=== PATIENT | female | born 1935 | race Two or more races ===

== ENCOUNTER 2019-01-03 18:21 | Inpatient (IN) | payer OTHER, MEDICAID ==
[~2019-01-03] VITALS: Ht 160 cm; Wt 78.4 kg
[~2019-01-03 18:21] MED LIST: CARV6.2551 PO; ENAL20TA PO; FURO40TA4 PO; GABA800T97 PO; LOVA40TA72 PO; METF-372 PO; PANTOPRAZOLE SOD DR 40 MG TAB PO
[2019-01-03] MEDS ORDERED: SODIUM CHLORIDE 0.9% 1,000 ML IVB ONE (19:00)
[2019-01-03 19:36] LABS: Basophils # (auto) 0 uL; Basophils % (auto) 0.7 % (0.0-2.0); Eosinophils # (auto) 0.2 uL; Hematocrit 39.9 % (36.0-46.0); Hemoglobin 13.1 g/dL (12.2-16.2); Lymphocytes # (auto) 0.9 uL; Lymphocytes % (auto) 22.1 % (10.0-50.0); Mean Corpuscular Hemoglobin 28.4 pg (28.0-32.0); Mean Corpuscular Hgb Conc. 32.8 g/dL (32.0-36.0); Mean Corpuscular Volume 86.7 fL (80.0-100.0); Monocytes # (auto) 0.4 uL; Monocytes % (auto) 10.2 % (0.0-12.0); Neutrophils # (auto) 2.6 uL; Platelet Count (auto) 213 10^3/uL (140-450); Red Blood Cells 4.61 10^6/uL (4.0-5.20); Red Cell Distribution Width 16.6 % (11.8-14.3); White Blood Cell 4.1 10^3/uL (4.4-10.8)
[2019-01-03 19:47] LABS: Albumin 3.6 g/dL (3.4-5.0); Calcium 8.5 mg/dL (8.5-10.1); Potassium 3.8 mmol/L (3.5-5.1)
[2019-01-03 19:54] LABS: BUN/Creatinine Ratio 14.3; Total Protein 7.1 g/dL (6.4-8.2)
[2019-01-03 19:59] LABS: INR 1.01 (0.9-1.15); Partial Thromboplastin Time 27.3 sec (23.64-32.05)
[2019-01-03 20:02] LABS: Bilirubin, Total 0.4 mg/dL (0.2-1.0)
[2019-01-03] MEDS ORDERED: FUROSEMIDE 40 MG/4 ML VIAL IV ONE (22:30)
[2019-01-03] MEDS ORDERED: DEXTROSE (50%) 50ML SYRG IV PRN (22:45)
[2019-01-03] MEDS ORDERED: LORazepam 2MG/ML-1ML VIAL IV PRN (22:45)
[2019-01-03 23:29] LABS: Urine Bacteria NONE SEEN /hpf (None Seen); Urine Blood TRACE /uL (Negative); Urine Specific Gravity 1.016 (1.001-1.035); Urine WBC 3 /hpf (0 - 5)
[2019-01-03 23:30] VITALS: BP 144/65
--- NOTE | 2019-01-03 23:30 | NUR ---
Telemetry admit from ER ABNER CASILLAS admitted to Telemetry unit after SBAR received. Patient oriented to Grace Loyd, primary RN, unit, room, bed, and unit policies regarding patient care and visiting hours. Patient now on continuous telemetry monitoring, tele box #3 and telemetry reading on arrival to unit is SR 73 . Patient placed on bedside oxygen, weighed by bed scale and encouraged to call if they need something. All questions and concerns addressed, patient verbalized understanding. PATIENT IS [place] SPEAKING ONLY. POOR HISTORIAN. PATIENT STATES THAT HER SISTER WILL BE HERE IN THE AM TO HELP ANSWER QUESTIONS.
--- NOTE | 2019-01-03 23:35 | NUR ---
PATIENT PLACED ON FALL PRECAUTION
[2019-01-04] VITALS (7 sets, daily range): BP systolic 106–152; BP diastolic 54–73
--- NOTE | 2019-01-04 00:15 | NUR ---
INFLUENZA SWAB SENT TO LAB
--- NOTE | 2019-01-04 00:15 | NUR ---
MRSA NAIRS SWAB SENT TO LAB
--- NOTE | 2019-01-04 00:25 | NUR ---
PHOTOS TAKEN TO RIGHT ABDOMEN; APPEARS TO BE SURGICAL INCISION.
--- NOTE | 2019-01-04 00:35 | NUR ---
MED REC UNABLE TO OBTAIN LIST OF HOME MEDICATIONS; PATIENT IS POOR HISTORIAN. PATIENT STATES THAT HER SISTER WILL BE HERE IN THE MORNING TO HELP ANSWER QUESTIONS. PATIENT DOES NOT REMEMBER HER SISTER'S PHONE NUMBER.
--- NOTE | 2019-01-04 04:30 | NUR ---
WOUND CARE REDRESSED DRESSING AT RIGHT ABDOMEN. MINIMAL SEROUS DRAINAGE, NO ODOR NOTED. NEW DRESSING STERILE GAUZE SECURED WITH DRESSING RETENTION TAPE.
[2019-01-04] MEDS: InsuLIN REG 1unit/0.01ml Soln (100units/ml) SC SCH ×4 (06:14→22:00)
[2019-01-04] MEDS: GABAPENTIN 400 MG CAP PO SCH ×3 (06:14→22:34)
[2019-01-04] MEDS: ACCU-CHEK COMFORT CURVE STRIP VI SCH ×4 (06:15→22:34)
[2019-01-04 06:27] LABS: Basophils # (auto) 0 uL; Basophils % (auto) 0.6 % (0.0-2.0); Calcium 8.5 mg/dL (8.5-10.1); Eosinophils # (auto) 0.2 uL; Eosinophils % (auto) 3.5 % (0.0-7.0); Hematocrit 39.3 % (36.0-46.0); Hemoglobin 12.9 g/dL (12.2-16.2); Lymphocytes # (auto) 0.8 uL; Lymphocytes % (auto) 15.5 % (10.0-50.0); Mean Corpuscular Hemoglobin 28.3 pg (28.0-32.0); Mean Corpuscular Hgb Conc. 32.8 g/dL (32.0-36.0); Mean Corpuscular Volume 86.4 fL (80.0-100.0); Monocytes # (auto) 0.6 uL; Monocytes % (auto) 11.6 % (0.0-12.0); Neutrophils # (auto) 3.4 uL; Neutrophils % (auto) 68.8 % (37.0-80.0); Nucleated Red Blood Cells % 0.1 %; Platelet Count (auto) 191 10^3/uL (140-450); Red Blood Cells 4.55 10^6/uL (4.0-5.20); Red Cell Distribution Width 16.4 % (11.8-14.3); White Blood Cell 4.9 10^3/uL (4.4-10.8)
[2019-01-04 06:30] LABS: BUN/Creatinine Ratio 15.7
--- NOTE | 2019-01-04 07:30 | NUR ---
Opening Shift Note Assumed care of patient. No S/S of distress/SOB or pain. Instructed patient on POC and to call for assist PRN, fall precautions in place per protocol. Will continue to monitor for changes Q1hr and PRN.
--- NOTE | 2019-01-04 07:52 | NUR ---
CLOSING NOTE- NOC SHIFT PATIENT IS ALERT AND ORIENTED X4. NO S/SX OF DISTRESS, SOB OR PAIN. ENDORSED CARE TO DAY SHIFT NURSE BENI REES.
[2019-01-04] MEDS ORDERED: CARVEDILOL 3.125 MG TAB PO SCH (10:00)
[2019-01-04] MEDS: CITALOPRAM HYDROBR 20 MG TAB PO SCH (10:24)
[2019-01-04] MEDS: FUROSEMIDE 40 MG/4 ML VIAL IV SCH (10:24)
[2019-01-04] MEDS: PANTOPRAZOLE 40 MG TAB PO SCH (10:26)
[2019-01-04] MEDS: ASPirin-EC 81 mg tab PO SCH (10:26)
[2019-01-04] MEDS: LOSARTAN POTASSIUM 50 MG TAB PO SCH (10:26)
--- NOTE | 2019-01-04 13:15 | NUR ---
POM Pt. instructed to have family member bring Azilect medication from home. Pt states family will bring medication later.
[2019-01-04] MEDS ORDERED: CARV12.544 PO (16:44)
[2019-01-04] MEDS ORDERED: LOSA-39 PO (16:44)
[2019-01-04] MEDS ORDERED: CITA-77 PO (16:44)
[2019-01-04] MEDS ORDERED: ALOG1TAB2 PO (16:44)
[2019-01-04] MEDS ORDERED: GLIP5TAB12 PO (16:44)
[2019-01-04] MEDS ORDERED: RASA0.5T PO (16:44)
[2019-01-04] MEDS ORDERED: FURO20TA3 PO (16:44)
[2019-01-04] MEDS ORDERED: ASPI81CH43 PO (16:44)
--- NOTE | 2019-01-04 16:44 | NUR ---
Med rec reviewed and updated according to list provided by family of current home meds
--- NOTE | 2019-01-04 16:50 | NUR ---
Cardio at bedside MD Vega at bedside. Aware of patient's status. Per MD efren lasix as ordered. Cont care
--- NOTE | 2019-01-04 19:10 | NUR ---
OPENING NOTE - NOC SHIFT PATIENT IS SITTING UP IN BED WATCHING TELEVISION. PATIENT IS ALERT AND ORIENTED. PATIENT STATES THAT SHE FELT BETTER THROUGH OUT THE DAY. BEDSIDE TABLE WITHIN REACH AND CALL LIGHT WITHIN REACH. DISCUSSED POC WITH PATIENT AND INSTRUCTED PATIENT TO CALL PRN; PATIENT VERBALIZED UNDERSTANDING. PATIENT IS COMORAN SPEAKING ONLY. PATIENT STATES THAT HER SISTER WAS IN TO VISIT HER DURING THE DAY AND THAT SHE WILL RETURN TOMORROW MORNING. WILL ENDORSE TO DAY SHIFT NURSE TO OBTAIN NOK INFORMATION. NO S/SX OF DISTRESS, SOB OR PAIN. WILL CONTINUE TO MONITOR Q1H AND PRN; PATIENT VERBALIZED UNDERSTANDING.
[2019-01-04] MEDS: CARVEDILOL 12.5 MG TAB PO SCH (22:00)
[2019-01-05 05:07] VITALS: BP 139/66
[2019-01-05] MEDS: GABAPENTIN 400 MG CAP PO SCH ×3 (06:31→21:38)
[2019-01-05] MEDS: ACCU-CHEK COMFORT CURVE STRIP VI SCH ×4 (06:31→21:39)
[2019-01-05] MEDS: InsuLIN REG 1unit/0.01ml Soln (100units/ml) SC SCH ×4 (06:31→21:39)
[2019-01-05 07:15] LABS: BUN/Creatinine Ratio 20.9; Calcium 8.2 mg/dL (8.5-10.1); Potassium 4.1 mmol/L (3.5-5.1)
--- NOTE | 2019-01-05 07:30 | NUR ---
Opening Shift Note Assumed care of patient, awake and alert. No S/S of distress/SOB or pain. Instructed on POC and to call for assist PRN, will continue to monitor for changes Q1hr and PRN. Fall precautions in place per protocol.
--- NOTE | 2019-01-05 07:44 | NUR ---
ENDORSED PATIENT CARE TO DAY SHIFT NURSE CABRERA BAZAN. NO S/SX OF DISTRESS, SOB OR PAIN.
[2019-01-05 08:00] VITALS: BP 140/74
[2019-01-05] MEDS: CITALOPRAM HYDROBR 20 MG TAB PO SCH (09:45)
[2019-01-05] MEDS: FUROSEMIDE 40 MG/4 ML VIAL IV SCH (09:45)
[2019-01-05] MEDS: CARVEDILOL 12.5 MG TAB PO SCH ×2 (09:46→21:29)
[2019-01-05] MEDS: RASAGILINE 0.5 MG PO SCH (09:48)
[2019-01-05] MEDS: LOSARTAN POTASSIUM 50 MG TAB PO SCH (09:48)
[2019-01-05] MEDS: ASPirin-EC 81 mg tab PO SCH (09:49)
[2019-01-05] MEDS: PANTOPRAZOLE 40 MG TAB PO SCH (09:49)
[2019-01-05] MEDS ORDERED: POLYETHYLENE GLYCOL 17 GM PWDR PO ONE (11:00)
--- NOTE | 2019-01-05 11:30 | NUR ---
Tele Patient downgraded from telemetry to Med Surg. Tele box sent back to tele room. Mary Notified.
[2019-01-05 12:00] VITALS: BP 114/55
--- NOTE | 2019-01-05 14:45 | NUR ---
Larson catheter dc'd Order to discontinue larson catheter. Larson dc'd with clean technique following deflation of balloon. Patient tolerated well with no complaints of pain. Continue care.
[2019-01-05 16:57] VITALS: BP 141/60
--- NOTE | 2019-01-05 19:05 | NUR ---
OPENING NOTE- NOC SHIFT PATIENT IS ALERT AND ORIENTED X4. PATIENT IS [place]OL[place] SPEAKING ONLY. DISCUSSED POC WITH PATIENT AND INSTRUCTED PATIENT TO CALL PRN; PATIENT VERBALIZES UNDERSTANDING. PATIENT REPORTS THAT SHE IS ABLE TO WALK TO TOILET AND URINATE WITHOUT DIFFICULTY. WILL CONTINUE TO MONITOR. PATIENT IS PLACED ON FALL PRECAUTIONS. WILL CONTINUE TO MONITOR Q1H AND PRN.
--- NOTE | 2019-01-05 20:00 | NUR ---
PATIENT UP TO TOILET USING WALKER. PATIENT IS ABLE TO WALK TO BATHROOM WITH USE OF HER PERSONAL WALKER. NO DISTRESS OR SOB NOTED.
[2019-01-05 20:05] VITALS: BP 109/57
[2019-01-05 22:00] VITALS: BP 109/57
[2019-01-06 05:00] VITALS: BP 134/70
[2019-01-06] MEDS: GABAPENTIN 400 MG CAP PO SCH ×2 (05:56→14:12)
[2019-01-06] MEDS: InsuLIN REG 1unit/0.01ml Soln (100units/ml) SC SCH ×3 (05:56→17:00)
[2019-01-06] MEDS: ACCU-CHEK COMFORT CURVE STRIP VI SCH ×3 (05:57→17:25)
[2019-01-06 07:09] LABS: Calcium 8.6 mg/dL (8.5-10.1); Potassium 5.3 mmol/L (3.5-5.1)
[2019-01-06 07:11] LABS: BUN/Creatinine Ratio 32.5
[2019-01-06 08:51] VITALS: BP 107/67
[2019-01-06] MEDS: RASAGILINE 0.5 MG PO SCH (10:00)
[2019-01-06] MEDS: ASPirin-EC 81 mg tab PO SCH (10:24)
[2019-01-06] MEDS: CARVEDILOL 12.5 MG TAB PO SCH (10:25)
[2019-01-06] MEDS: PANTOPRAZOLE 40 MG TAB PO SCH (10:25)
[2019-01-06] MEDS: CITALOPRAM HYDROBR 20 MG TAB PO SCH (10:26)
[2019-01-06] MEDS: LOSARTAN POTASSIUM 50 MG TAB PO SCH (10:26)
--- NOTE | 2019-01-06 11:43 | NUR ---
Hospitalist at bedside MD Ross at bedside, aware of patient's status including abnormal labs, ABG's. New orders received for social service consult to arrange oxygen for home, new order to redraw potassium and if potassium level is normal patient can be dc home today. Patient verbalized understanding. Cont care
--- NOTE | 2019-01-06 12:31 | NUR ---
Okay to dc home spoke to MD Ross and made aware of new potassium level 4.8, per MD dc home today after oxygen has been arranged. [facility] and she states she will be in today. Cont care
[2019-01-06 12:37] VITALS: BP 107/67
[2019-01-06 13:00] VITALS: BP 120/46
--- NOTE | 2019-01-06 15:59 | NUR ---
assessment Patient is a 83 year old female who is alert and oriented. Patients cognitive abilities are intact. Prior to admission patient lived home with her sister and functioned with assistance. Per patient she will return home to her prior living arrangements post discharge and family will transport her home. Patient informed me she has a fww for home use. Patient qualifies for home 02 her ABG p02 was 50.2. Rosalie REY ALEXI shweta is working on home 02 for patient. I informed patient she has a right to speak to a social media project manager regarding all care. I informed patient she has a right to participate in any and all discharge planning. Patient does not have a POA and advanced directive. I have offered patient information on POA and advanced directives. I informed the patient the advantages and benefits of having an Advanced Directive. Patient verbalized understanding and agreed to discharge plan. Addendum: 01/06/19 at 1606 by Daniela RIOS Amended: Links added.
--- NOTE | 2019-01-06 16:45 | NUR ---
Discharge planning per consult, patient has orders for 02. Referral sent to [facility] [phone], obtained auth from [facility]-[id number]. Placed a follow up call to [facility], spoke with Angeles, pierre auth and he advised that they will deliver the 02 to bedside between 6:30-8pm. I provided daughter Jo's phone number [phone] to reference delivery of 02 concentrator home delivery. Nurse Velazco was advised of dc plan. Addendum: 01/06/19 at 1650 by SAMM SABILLON SS Amended: Links added.
[2019-01-06 17:00] VITALS: BP 111/53
--- NOTE | 2019-01-06 17:38 | NUR ---
Decreased BS Blood sugar is 59, reassessed is 60. Patient denies symptoms of hypoglycemia at this time. OJ and crackers provided. No distress noted or sob. Patient's daughter Jo at bedside, states she will be leaving soon but her "aunt" will be coming back to be present for oxygen delivery. Awaiting oxygen delivery for dc as ordered. Cont to monitor
--- NOTE | 2019-01-06 18:06 | NUR ---
Reassessed BS Blood sugar reassessed is 94 after orange juice provided and crackers. Patient denies any symptoms of hypoglycemia. No distress or sob noted. Cont to monitor
--- NOTE | 2019-01-06 18:44 | NUR ---
Patient's sister at bedside awaiting oxygen delivery at this time for dc.
--- NOTE | 2019-01-06 19:15 | NUR ---
Patient care endorsed endorsed care to Oneida chou. Patient sitting up in bed in no acute distress or sob noted. Patient currently on 2L n/c and instructed to maintain continuous oxygen at 2l n/c at home as well. Patient and pt's sister at bedside verbalized understanding. Patient's sister at bedside awaiting oxygen to be delivered for dc. Call light within reach.
--- NOTE | 2019-01-06 21:00 | NUR ---
[facility] AT BEDSIDE TO DELIVER PORTAL OXYGEN
--- NOTE | 2019-01-06 21:22 | NUR ---
Discharge instructions given as ordered. Encourage to follow up with PMD as instructed. All questions and concerns addressed. Patient verbalized understanding. Medication reconciliation form completed and copy given to patient. IV removed with catheter intact, pressure dressing applied. Patient taken to vehicle via wheelchair with all personal belongings and portable oxygen tank at 2L via NC, accompanied by staff and family member. No distress noted at time of departure.
[2019-01-06 21:39] VITALS: BP 135/59
== END 2019-01-06 21:22 | disposition home or self-care (01) | DRG 291 ==
LOC: ER 18:21 → TELE 18:22 → EAST 23:29 → TELE-EAST 23:43 → EAST 01-05 10:59
PROVIDERS: ADMIT Nurse Practitioner Family; ATTEND Internal Medicine
DX: I13.0 Hypertensive heart and chronic kidney disease with heart failure and stage 1 through stage 4 chronic kidney disease, or unspecified chronic kidney disease (principal); J18.9 Pneumonia, unspecified organism; I50.43 Acute on chronic combined systolic (congestive) and diastolic (congestive) heart failure; J96.00 Acute respiratory failure, unspecified whether with hypoxia or hypercapnia; E87.1 Hypo-osmolality and hyponatremia; J44.0 Chronic obstructive pulmonary disease with (acute) lower respiratory infection; J91.8 Pleural effusion in other conditions classified elsewhere; F32.9 Major depressive disorder, single episode, unspecified; G20 Parkinson's disease; I25.10 Atherosclerotic heart disease of native coronary artery without angina pectoris; E78.5 Hyperlipidemia, unspecified; F41.9 Anxiety disorder, unspecified; I48.91 Unspecified atrial fibrillation; I27.20 Pulmonary hypertension, unspecified; F02.80 Dementia in other diseases classified elsewhere, unspecified severity, without behavioral disturbance, psychotic disturbance, mood disturbance, and anxiety; E66.9 Obesity, unspecified; N18.3 Chronic kidney disease, stage 3 (moderate); E11.22 Type 2 diabetes mellitus with diabetic chronic kidney disease; K57.90 Diverticulosis of intestine, part unspecified, without perforation or abscess without bleeding; K21.9 Gastro-esophageal reflux disease without esophagitis; Z96.659 Presence of unspecified artificial knee joint; Z95.0 Presence of cardiac pacemaker; Z83.3 Family history of diabetes mellitus; Z82.49 Family history of ischemic heart disease and other diseases of the circulatory system; Z79.84 Long term (current) use of oral hypoglycemic drugs; Z82.0 Family history of epilepsy and other diseases of the nervous system; Z68.30 Body mass index [BMI] 30.0-30.9, adult; Z79.899 Other long term (current) drug therapy; Z88.8 Allergy status to other drugs, medicaments and biological substances
CPT/HCPCS: 36415; 36600; 71045; 74176; 80048; 80053; 81001; 82805; 82962; 83036; 83605; 83880; 84132; 84443; 84484; 85025; 85379; 85610; 85730; 87040; 87081; 87804; 93005; 93306; 94761; 97116; 97530; G0378; J1815

== ENCOUNTER 2020-07-06 13:22 | Inpatient (IN) | payer OTHER, MEDICAID ==
[~2020-07-06] VITALS: Ht 157.5 cm; Wt 73.5 kg
[~2020-07-06 13:22] MED LIST changes: +ALOG1TAB2 PO; +ASPI81CH43 PO; +CARV12.544 PO; -CARV6.2551 PO; +CITA-77 PO; -ENAL20TA PO; +FURO20TA3 PO; -FURO40TA4 PO; +GLIP5TAB12 PO; +LOSA-39 PO; -METF-372 PO; +RASA0.5T PO
[2020-07-06 13:44] LABS: Basophils # (auto) 0 10 ^3/uL (0-0.2); Basophils % (auto) 0.8 % (0.0-2.0); Eosinophils # (auto) 0.1 10 ^3/uL (0-0.8); Hematocrit 34.6 % (36.0-46.0); Hemoglobin 11.1 g/dL (12.2-16.2); Lymphocytes # (auto) 0.7 10 ^3/uL (0.4-5.4); Lymphocytes % (auto) 16.1 % (10.0-50.0); Mean Corpuscular Hemoglobin 27.9 pg (28.0-32.0); Mean Corpuscular Hgb Conc. 32.1 g/dL (32.0-36.0); Monocytes # (auto) 0.2 10 ^3/uL (0-1.3); Monocytes % (auto) 5.1 % (0.0-12.0); Neutrophils # (auto) 3.5 10 ^3/uL (1.6-8.6); Platelet Count (auto) 273 10^3/uL (140-450); Red Blood Cells 3.97 10^6/uL (4.0-5.20); White Blood Cell 4.6 10^3/uL (4.4-10.8)
[2020-07-06] MEDS ORDERED: MAGNESIUM SULFATE 1GM/100ML 100 ML IV ONE (13:45)
[2020-07-06] MEDS ORDERED: cefTRIAXone 1GM/50ML D5W 50 ML IV ONE (13:45)
[2020-07-06] MEDS ORDERED: IPRATROPIUM BROM 0.5 MG/2.5ML INH SOL NEB ONE (14:00)
[2020-07-06] MEDS ORDERED: methylPREDNISolone SOD SUCC 125 MG/2 ML VL IV ONE (14:00)
[2020-07-06] MEDS ORDERED: ALBUTEROL SULF 2.5 MG/0.5ML(0.5%) NEB SOLN NEB ONE (14:00)
[2020-07-06] MEDS ORDERED: FUROSEMIDE 40 MG/4 ML VIAL IV ONE (14:00)
[2020-07-06 14:02] LABS: INR 1.08 (0.9-1.15); Partial Thromboplastin Time 27.2 sec (23.0-31.2)
[2020-07-06 14:07] LABS: Albumin 3.1 g/dL (3.4-5.0); Anion Gap 7 (5-15); Blood Urea Nitrogen 18 mg/dL (7-18); Calcium 8.1 mg/dL (8.5-10.1); Carbon Dioxide 28 mmol/L (21-32); Chloride 101 mmol/L (98-107); Glucose 220 mg/dL (74-106); Magnesium 1.8 mg/dL (1.6-2.6); Potassium 4.1 mmol/L (3.5-5.1); Sodium 136 mmol/L (136-145)
[2020-07-06 14:09] LABS: Alanine Aminotransferase 16 U/L (13-56); Aspartate Aminotransferase 19 U/L (15-37); BUN/Creatinine Ratio 19.1; GFR African American 73 mL/min; GFR Non-African American 60 mL/min
[2020-07-06 14:14] LABS: Alkaline Phosphatase 98 U/L (45-117); Bilirubin, Total 0.5 mg/dL (0.2-1.0); Total Protein 6.7 g/dL (6.4-8.2)
[2020-07-06 15:33] LABS: Urine Bacteria NONE SEEN /hpf (None Seen); Urine Blood Negative /uL (Negative); Urine Hyaline Cast FEW /lpf (0 - 2); Urine Specific Gravity 1.007 (1.001-1.035); Urine WBC 1 /hpf (0 - 5)
[2020-07-06] MEDS ORDERED: LORazepam 0.5 MG TAB PO PRN (17:30)
[2020-07-06] MEDS ORDERED: MORPHINE SULF INJ 2 MG/ML SYRINGE 1ML IV PRN ×2 (17:30)
[2020-07-06] MEDS ORDERED: ONDANSETRON HCL 4 MG/2 ML VIAL IV PRN (17:30)
[2020-07-06] MEDS ORDERED: NITROGLYCERIN 0.4 MG SL TAB SL PRN (17:30)
[2020-07-06] MEDS ORDERED: DEXTROSE (50%) 50ML SYRG IV PRN (17:30)
[2020-07-06] MEDS ORDERED: DOCUSATE CALCIUM 240 MG CAP PO PRN (17:30)
[2020-07-06] MEDS ORDERED: LABETALOL HCL 5 MG/ML 4ML SYRINGE IV PRN (17:30)
[2020-07-06] MEDS ORDERED: IPRATROPIUM BROM 0.5 MG/2.5ML INH SOL ONE (18:03)
[2020-07-06] MEDS ORDERED: ALBUTEROL SULF 2.5 MG/0.5ML(0.5%) NEB SOLN ONE (18:03)
[2020-07-06 18:33] VITALS: BP 116/48
[2020-07-06] MEDS: ALBUTEROL SULF 2.5 MG/0.5ML(0.5%) NEB SOLN NEB PRN (19:18)
[2020-07-06] MEDS: IPRATROPIUM BROM 0.5 MG/2.5ML INH SOL NEB SCH (19:18)
[2020-07-06 19:40] VITALS: BP 134/64
[2020-07-06] MEDS: methylPREDNISolone SOD SUCC 125 MG/2 ML VL IV SCH (22:41)
[2020-07-06] MEDS: CARVEDILOL 12.5 MG TAB PO SCH (22:42)
[2020-07-06] MEDS: ACCU-CHEK COMFORT CURVE STRIP VI SCH (22:43)
[2020-07-06] MEDS: INSULIN LANTUS (GLARGINE) 1 /0.01ml (100units/ml) SC SCH (22:54)
[2020-07-06] MEDS: InsuLIN REG 1unit/0.01ml Soln (100units/ml) SC SCH (22:54)
[2020-07-07] MEDS: IPRATROPIUM BROM 0.5 MG/2.5ML INH SOL NEB SCH ×4 (00:10→18:36)
[2020-07-07] MEDS: ALBUTEROL SULF 2.5 MG/0.5ML(0.5%) NEB SOLN NEB PRN ×3 (00:10→18:36)
[2020-07-07] MEDS: ACCU-CHEK COMFORT CURVE STRIP VI SCH ×6 (00:37→20:00)
[2020-07-07] MEDS: InsuLIN REG 1unit/0.01ml Soln (100units/ml) SC SCH ×6 (00:38→20:00)
[2020-07-07 05:00] VITALS: BP 122/62
[2020-07-07 07:37] LABS: Basophils # (auto) 0 10 ^3/uL (0-0.2); Basophils % (auto) 0.1 % (0.0-2.0); Eosinophils # (auto) 0 10 ^3/uL (0-0.8); Hematocrit 35.6 % (36.0-46.0); Hemoglobin 11.6 g/dL (12.2-16.2); Lymphocytes # (auto) 0.5 10 ^3/uL (0.4-5.4); Lymphocytes % (auto) 15.9 % (10.0-50.0); Mean Corpuscular Hemoglobin 27.7 pg (28.0-32.0); Mean Corpuscular Hgb Conc. 32.6 g/dL (32.0-36.0); Mean Corpuscular Volume 85.2 fL (80.0-100.0); Monocytes # (auto) 0 10 ^3/uL (0-1.3); Monocytes % (auto) 0.9 % (0.0-12.0); Neutrophils # (auto) 2.6 10 ^3/uL (1.6-8.6); Neutrophils % (auto) 83.1 % (37.0-80.0); Nucleated Red Blood Cells % 0.1 %; Platelet Count (auto) 276 10^3/uL (140-450); Red Blood Cells 4.18 10^6/uL (4.0-5.20); Red Cell Distribution Width 14.8 % (11.8-14.3); White Blood Cell 3.1 10^3/uL (4.4-10.8)
[2020-07-07 07:39] LABS: Albumin 3.2 g/dL (3.4-5.0); Calcium 8.6 mg/dL (8.5-10.1); Potassium 3.9 mmol/L (3.5-5.1)
[2020-07-07 07:41] LABS: BUN/Creatinine Ratio 23.9
[2020-07-07 07:48] LABS: Bilirubin, Total 0.3 mg/dL (0.2-1.0); Total Protein 6.8 g/dL (6.4-8.2)
[2020-07-07 08:00] VITALS: BP 138/71
[2020-07-07 09:00] VITALS: BP 138/71
[2020-07-07] MEDS: methylPREDNISolone SOD SUCC 125 MG/2 ML VL IV SCH (09:42)
[2020-07-07] MEDS: CARVEDILOL 12.5 MG TAB PO SCH (09:43)
[2020-07-07] MEDS: CITALOPRAM HYDROBR 20 MG TAB PO SCH (09:43)
[2020-07-07] MEDS: PANTOPRAZOLE 40 MG TAB PO SCH (09:44)
[2020-07-07] MEDS: ENOXAPARIN SOD 40 MG/0.4 ML SYRINGE SC SCH (09:44)
[2020-07-07 13:00] VITALS: BP 126/70
[2020-07-07] MEDS ORDERED: FUROSEMIDE 40 MG/4 ML VIAL IV SCH (14:30)
[2020-07-07 17:00] VITALS: BP 139/67
[2020-07-07] MEDS: FUROSEMIDE 40 MG/4 ML VIAL IV SCH (20:51)
[2020-07-07 22:00] VITALS: BP 133/61
[2020-07-08] MEDS: ALBUTEROL SULF 2.5 MG/0.5ML(0.5%) NEB SOLN NEB PRN ×2 (00:10→06:10)
[2020-07-08] MEDS: IPRATROPIUM BROM 0.5 MG/2.5ML INH SOL NEB SCH ×4 (00:10→19:43)
[2020-07-08] MEDS: CARVEDILOL 12.5 MG TAB PO SCH ×3 (00:22→21:12)
[2020-07-08] MEDS: INSULIN LANTUS (GLARGINE) 1 /0.01ml (100units/ml) SC SCH ×2 (00:35→23:05)
[2020-07-08] MEDS: InsuLIN REG 1unit/0.01ml Soln (100units/ml) SC SCH ×7 (00:36→23:09)
[2020-07-08] MEDS: ACCU-CHEK COMFORT CURVE STRIP VI SCH ×7 (04:29→23:09)
[2020-07-08 05:00] VITALS: BP 152/78
[2020-07-08] MEDS: FUROSEMIDE 40 MG/4 ML VIAL IV SCH ×2 (05:46→18:55)
[2020-07-08 06:37] LABS: Potassium 3.7 mmol/L (3.5-5.1)
[2020-07-08 06:52] LABS: BUN/Creatinine Ratio 27.3; Calcium 8.3 mg/dL (8.5-10.1); Magnesium 2.3 mg/dL (1.6-2.6)
[2020-07-08 08:00] VITALS: BP 150/70
[2020-07-08 09:00] VITALS: BP 150/70
[2020-07-08] MEDS: ENOXAPARIN SOD 40 MG/0.4 ML SYRINGE SC SCH (09:30)
[2020-07-08] MEDS: PANTOPRAZOLE 40 MG TAB PO SCH (09:31)
[2020-07-08] MEDS: CITALOPRAM HYDROBR 20 MG TAB PO SCH (09:31)
[2020-07-08 13:00] VITALS: BP 135/81
[2020-07-08] MEDS ORDERED: POTASSIUM CHL 20 Meq TABLET PO ONE (13:15)
[2020-07-08 17:00] VITALS: BP 151/73
[2020-07-08] MEDS ORDERED: ERGOCALCIFEROL 50,000 UNIT(1.25MG) CAP PO SCH (18:30)
[2020-07-08 21:35] VITALS: BP 125/92
[2020-07-09] MEDS: ALBUTEROL SULF 2.5 MG/0.5ML(0.5%) NEB SOLN NEB PRN ×3 (00:31→19:49)
[2020-07-09] MEDS: IPRATROPIUM BROM 0.5 MG/2.5ML INH SOL NEB SCH ×3 (00:31→19:48)
[2020-07-09] MEDS: ACETAMINOPHEN 325 MG TAB PO PRN (01:54)
[2020-07-09] MEDS: ACCU-CHEK COMFORT CURVE STRIP VI SCH ×6 (04:02→23:11)
[2020-07-09] MEDS: InsuLIN REG 1unit/0.01ml Soln (100units/ml) SC SCH ×6 (04:05→23:10)
[2020-07-09 05:00] VITALS: BP 136/70
[2020-07-09] MEDS: FUROSEMIDE 40 MG/4 ML VIAL IV SCH ×2 (05:13→18:17)
[2020-07-09 09:00] VITALS: BP 141/75
[2020-07-09] MEDS: CARVEDILOL 12.5 MG TAB PO SCH ×2 (09:53→21:35)
[2020-07-09] MEDS: CITALOPRAM HYDROBR 20 MG TAB PO SCH (09:53)
[2020-07-09] MEDS: ENOXAPARIN SOD 40 MG/0.4 ML SYRINGE SC SCH (09:54)
[2020-07-09] MEDS: PANTOPRAZOLE 40 MG TAB PO SCH (09:54)
[2020-07-09 13:00] VITALS: BP 139/65
[2020-07-09 16:49] VITALS: BP 136/64
[2020-07-09 20:24] VITALS: BP 136/64
[2020-07-09 22:00] VITALS: BP 130/68
[2020-07-09] MEDS: INSULIN LANTUS (GLARGINE) 1 /0.01ml (100units/ml) SC SCH (23:09)
[2020-07-10] MEDS: IPRATROPIUM BROM 0.5 MG/2.5ML INH SOL NEB SCH ×3 (00:30→12:13)
[2020-07-10] MEDS: ALBUTEROL SULF 2.5 MG/0.5ML(0.5%) NEB SOLN NEB PRN ×3 (00:30→12:13)
[2020-07-10] MEDS: ACETAMINOPHEN 325 MG TAB PO PRN (01:12)
[2020-07-10] MEDS: ACCU-CHEK COMFORT CURVE STRIP VI SCH ×4 (03:41→16:10)
[2020-07-10] MEDS: InsuLIN REG 1unit/0.01ml Soln (100units/ml) SC SCH ×4 (03:41→16:18)
[2020-07-10 05:00] VITALS: BP 149/78
[2020-07-10] MEDS: FUROSEMIDE 40 MG/4 ML VIAL IV SCH (05:09)
[2020-07-10 07:41] LABS: BUN/Creatinine Ratio 25.3; Calcium 8.8 mg/dL (8.5-10.1)
[2020-07-10] MEDS: CITALOPRAM HYDROBR 20 MG TAB PO SCH (08:56)
[2020-07-10] MEDS: PANTOPRAZOLE 40 MG TAB PO SCH (08:56)
[2020-07-10] MEDS: CARVEDILOL 12.5 MG TAB PO SCH (08:57)
[2020-07-10] MEDS: ENOXAPARIN SOD 40 MG/0.4 ML SYRINGE SC SCH (08:57)
[2020-07-10 09:00] VITALS: BP 142/65
[2020-07-10 10:54] LABS: Cholesterol 162 mg/dL (< 200); Triglycerides 92 mg/dL (< 150)
[2020-07-10 10:57] LABS: HDL Cholesterol 54 mg/dL (40-59); LDL Cholesterol 90 mg/dL (< 100)
[2020-07-10 13:00] VITALS: BP 114/62
[2020-07-10 16:33] VITALS: BP 116/66
[2020-07-10 17:00] VITALS: BP 124/67
== END 2020-07-10 17:30 | disposition home or self-care (01) | DRG 291 ==
LOC: ER 13:22 → TELE 17:54 → TELE-EAST 19:33
PROVIDERS: ADMIT Family Medicine; ATTEND Internal Medicine
DX: I11.0 Hypertensive heart disease with heart failure (principal); J96.20 Acute and chronic respiratory failure, unspecified whether with hypoxia or hypercapnia; J44.1 Chronic obstructive pulmonary disease with (acute) exacerbation; I50.41 Acute combined systolic (congestive) and diastolic (congestive) heart failure; Z20.822 Contact with and (suspected) exposure to COVID-19; E83.51 Hypocalcemia; E11.65 Type 2 diabetes mellitus with hyperglycemia; D64.9 Anemia, unspecified; I27.20 Pulmonary hypertension, unspecified; E66.9 Obesity, unspecified; E78.5 Hyperlipidemia, unspecified; I36.1 Nonrheumatic tricuspid (valve) insufficiency; I25.10 Atherosclerotic heart disease of native coronary artery without angina pectoris; I48.91 Unspecified atrial fibrillation; Z68.29 Body mass index [BMI] 29.0-29.9, adult; Z80.1 Family history of malignant neoplasm of trachea, bronchus and lung; Z80.0 Family history of malignant neoplasm of digestive organs; Z80.3 Family history of malignant neoplasm of breast; Z80.41 Family history of malignant neoplasm of ovary; Z80.8 Family history of malignant neoplasm of other organs or systems; Z81.8 Family history of other mental and behavioral disorders; Z82.0 Family history of epilepsy and other diseases of the nervous system; Z82.3 Family history of stroke; Z82.49 Family history of ischemic heart disease and other diseases of the circulatory system; Z82.5 Family history of asthma and other chronic lower respiratory diseases; Z82.62 Family history of osteoporosis; Z83.3 Family history of diabetes mellitus; Z95.0 Presence of cardiac pacemaker
CPT/HCPCS: 36415; 71045; 80048; 80053; 80061; 81001; 82306; 82962; 83036; 83735; 83880; 84443; 84484; 85025; 85610; 85730; 87426; 93005; 93306; 94640; 96365; 96367; 96375; 99291; G0378; J0696; J1815; J3490

== ENCOUNTER 2020-08-06 14:17 | Emergency (ER) | payer OTHER, MEDICAID ==
[~2020-08-06] VITALS: Ht 160 cm; Wt 81.6 kg
[2020-08-06 14:17] VITALS: BP 101/42
== END 2020-08-06 15:38 | disposition left against medical advice (07) ==
LOC: ER 14:17
DX: R21 Rash and other nonspecific skin eruption (principal); Z53.21 Procedure and treatment not carried out due to patient leaving prior to being seen by health care provider